=== PATIENT | female | born 1975 | race Caucasian/White ===

== ENCOUNTER 2016-11-25 08:50 | Emergency (ER) | payer MEDICAID ==
[~2016-11-25] VITALS: Ht 177.8 cm; Wt 87.0 kg
[2016-11-25 09:39] LABS: HEMATOCRIT 45.4 % (34.6-47.8); HEMOGLOBIN 15.4 g/dL (11.7-16.4); WHITE BLOOD COUNT 5.5 x10^3/uL (3.4-10)
[2016-11-25 09:50] LABS: ASPARTATE AMINO TRANSFERASE 11 U/L (15-37); BLOOD UREA NITROGEN 16 mg/dL (7-18)
[2016-11-25 09:55] LABS: ACETAMINOPHEN 6 mcg/mL (10-30)
[2016-11-25 10:10] LABS: DAU SCREEN DISCLAIMER
[2016-11-25] MEDS ORDERED: AMPH15TA PO (10:31)
[2016-11-25] MEDS ORDERED: OMEP40CA6 PO (10:31)
[2016-11-25] MEDS ORDERED: CLON-365 PO (10:31)
[2016-11-25] MEDS ORDERED: HYDR1TAB12 PO (10:31)
[2016-11-25] MEDS ORDERED: SERT100T5 PO (10:31)
[2016-11-25 13:33] VITALS: BP 127/80
== END 2016-11-25 13:35 | disposition home or self-care (01) ==
LOC: ED 10:41
DX: T65.91XA Toxic effect of unspecified substance, accidental (unintentional), initial encounter (principal); F32.9 Major depressive disorder, single episode, unspecified; Y92.9 Unspecified place or not applicable
CPT/HCPCS: 36415; 80053; 80307; 80329; 81003; 84703; 85025; 99284; G0480